=== PATIENT | male | born 1980 | race African-American/Black ===

== ENCOUNTER 2021-04-24 12:18 | Emergency (ER) | payer OTHER ==
[~2021-04-24] VITALS: Ht 190.5 cm; Wt 80.7 kg
[2021-04-24] MEDS ORDERED: NORCO5 PO (12:32)
[2021-04-24] MEDS ORDERED: IBUPROFEN 600600 M1 PO (12:33)
[2021-04-24] MEDS ORDERED: CEPHALEXIN500 MG PO (12:52)
[2021-04-24 12:57] VITALS: BP 141/76
== END 2021-04-24 12:57 | disposition home or self-care (01) ==
LOC: M.ERS 12:18
DX: S51.811D Laceration without foreign body of right forearm, subsequent encounter (principal); Z88.8 Allergy status to other drugs, medicaments and biological substances; X58.XXXD Exposure to other specified factors, subsequent encounter